=== PATIENT | male | born 1985 | race Caucasian/White ===

== ENCOUNTER 2019-05-12 06:49 | Emergency (ER) | payer MEDICARE, MEDICAID ==
[~2019-05-12] VITALS: Ht 167.6 cm; Wt 68.0 kg
[2019-05-12 06:52] VITALS: BP 153/89
== END 2019-05-12 08:10 | disposition home or self-care (01) ==
LOC: ER 08:07
DX: Z02.2 Encounter for examination for admission to residential institution (principal); Q05.9 Spina bifida, unspecified
CPT/HCPCS: 99283